=== PATIENT | male | born 1985 | race Caucasian/White ===

== ENCOUNTER 2018-04-14 21:11 | Inpatient (IN) | payer MEDICAID ==
[~2018-04-14] VITALS: Ht 175.3 cm; Wt 150.4 kg
[2018-04-14 21:18] VITALS: Ht 175.3 cm; Wt 150.4 kg
--- NOTE | 2018-04-14 22:12 | ERD ---
ER Documentation Chief Complaint Chief Complaint LLQ ab pain x 7days;hx diverticulitis on Cipro/Flagyl&Tylenol ES HPI The patient is a 32-year-old male, presenting to the ER because of intermittent left lower quadrant abdominal pain for the last 7 days, had similar symptoms 3 years ago when he had diverticulitis, the pain is intermittent, had intermittent subjective fever for the last 5 days. He was seen at [facility] 2 days ago and treated presumably for acute diverticulitis with Cipro and Flagyl; he is not getting better, complains of intermittent diarrhea for the last 7 days, denies vomiting, denies hematemesis last hematochezia. He smokes and drinks Past medical history: History of diverticulitis Past surgical history: Left ariel surgery when he was 13 years old ROS All systems reviewed and are negative except as per history of present illness. Medications Home Meds Reported Medications Acetaminophen* (Acetaminophen*) 500 MG Extra Strength Tablet, 500 MG PO Q4H PRN for PAIN AND OR ELEVATED TEMP, TAB 04/14/18 Metronidazole* (Flagyl*) 500 Mg Tablet, 500 MG PO BID, TAB 04/14/18 Ciprofloxacin Hcl* (Ciprofloxacin Hcl*) 500 Mg Tablet, 500 MG PO Q12, #14 TAB 04/14/18 Allergies Allergies: Coded Allergies: No Known Allergy (Unverified , 04/14/18) Physical Exam Vitals Vital Signs Date Temp Pulse Resp B/P (MAP) Pulse Ox O2 O2 Flow FiO2 Time Delivery Rate 04/14/18 98.4 98 15 151/93 97 Room Air 22:51 (112) 04/14/18 98.4 105 18 164/109 100 Room Air 21:56 (127) 04/14/18 100.0 111 18 229/128 100 21:18 (161) Physical Exam Const: No acute distress. Head: Atraumatic. Eyes: Normal Conjunctiva. ENT: Normal External Ears, Nose and Mouth. Neck: Full range of motion. No meningismus. Resp: Clear to auscultation bilaterally. Cardio: Regular rate and rhythm. Abd: Soft, non distended, normal bowel sounds, mild left lower quadrant tenderness, no rigidity, rebound or CVA tenderness Skin: No petechiae or rashes. Back: No midline or flank tenderness. Ext: No cyanosis, or edema. Neur: Awake and alert. No focal deficit Psych: Normal Mood and Affect. Result Diagram: 04/15/18 0437 04/15/18 0437 Results 24 hrs Laboratory Tests Test 04/14/18 21:52 White Blood Count 8.5 10^3/ul Red Blood Count 5.56 10^6/ul Hemoglobin 14.7 g/dl Hematocrit 44.9 % Mean Corpuscular Volume 80.8 fl Mean Corpuscular Hemoglobin 26.4 pg Mean Corpuscular Hemoglobin Concent 32.7 g/dl Red Cell Distribution Width 13.2 % Platelet Count 300 10^3/UL Mean Platelet Volume 9.7 fl Immature Granulocytes % 0.400 % Neutrophils % 56.0 % Lymphocytes % 30.3 % Monocytes % 11.6 % Eosinophils % 1.5 % Basophils % 0.2 % Nucleated Red Blood Cells % 0.0 /100WBC Immature Granulocytes # 0.030 10^3/ul Neutrophils # 4.8 10^3/ul Lymphocytes # 2.6 10^3/ul Monocytes # 1.0 10^3/ul Eosinophils # 0.1 10^3/ul Basophils # 0.0 10^3/ul Nucleated Red Blood Cells # 0.0 10^3/ul Urine Color YELLOW Urine Clarity CLEAR Urine pH 5.0 Urine Specific B[place] 1.015 Urine Ketones TRACE mg/dL Urine Nitrite NEGATIVE mg/dL Urine Bilirubin NEGATIVE mg/dL Urine Urobilinogen NEGATIVE mg/dL Urine Leukocyte Esterase TRACE Dennis/ul Urine Microscopic RBC 0 /HPF Urine Microscopic WBC 0 /HPF Urine Hemoglobin NEGATIVE mg/dL Urine Glucose NEGATIVE mg/dL Urine Total Protein NEGATIVE mg/dl Sodium Level 137 mmol/L Potassium Level 4.0 mmol/L Chloride Level 101 mmol/L Carbon Dioxide Level 25 mmol/L Anion Gap 11 Blood Urea Nitrogen 16 mg/dl Creatinine 0.85 mg/dl Est Glomerular Filtrat Rate mL/min > 60 mL/min Glucose Level 105 mg/dl Calcium Level 9.1 mg/dl Total Bilirubin 0.1 mg/dl Direct Bilirubin 0.00 mg/dl Indirect Bilirubin 0.1 mg/dl Aspartate Amino Transf (AST/SGOT) 46 IU/L Alanine Aminotransferase (ALT/SGPT) 79 IU/L Alkaline Phosphatase 74 IU/L Total Protein 8.5 g/dl Albumin 4.5 g/dl Globulin 4.00 g/dl Albumin/Globulin Ratio 1.12 Lipase 81 U/L [facility] [id number] [address] [place] [id number] Radiology Main Line: [phone] DIAGNOSTIC IMAGING REPORT Patient: JOE TORRES : 1985 Age: 32 Sex: M MR #: [id number] DOS: 04/14/18 2239 Ordering MD: JAVAN PRATT MD Location: E/R Room/Bed: PROCEDURE: CT Abdomen and Pelvis without contrast. CLINICAL INDICATION: Abdominal pain. TECHNIQUE: CT scan of the abdomen and pelvis without contrast was performed on a multidetector high-resolution CT scanner. The patient was scanned without intravenous contrast. Coronal and sagittal reformatted images were obtained from the axial source images. Images were reviewed on a high-resolution PACS workstation. The total exam CTDI equals 23.90 mGy and the total exam DLP equals 1668.37 mGy-cm. DICOM images are available. One or more of the following dose reduction techniques were utilized: 1.) Automated exposure control 2.) Adjustment of the mA +/- kV according to patient's size 3.) Use of iterative reconstruction technique. COMPARISON: None. FINDINGS: CT abdomen: Mild atelectasis at the posterior right costophrenic angle. Otherwise, the lung bases are clear. The heart size is normal, without pericardial thickening or effusion. The liver demonstrates mild decreased attenuation suggesting a mild degree of fatty infiltration. Otherwise, the liver is normal in size without focal mass or intrahepatic biliary dilatation. The spleen is normal in size and homogeneous in density. The stomach is partially collapsed, but is grossly unremarkable. The pancreas as visualized is normal. The gallbladder may contain small layering gallstones; and biliary tree otherwise unremarkable and there is no evidence for biliary dilatation. The adrenal glands are symmetric and normal. The kidneys are symmetrically unremarkable as well. No renal calculus or obstructive uropathy or mass lesion is seen. The aorta is of normal caliber. No abdominal aortic vascular calcifications are present. There is no retroperitoneal lymphadenopathy. The emilia hepatis region is clear. The bowel and mesentery, as visualized, are equally unremarkable. CT pelvis: Diverticulitis is seen in the proximal sigmoid colon. Pericolonic fat inflammatory changes are seen. There is no evident abscess or free air to suggest perforation. Small diverticula are otherwise identified within the proximal sigmoid colon. The small bowel loops situated within the pelvis are unremarkable. The pelvic organs are normal. The pelvic sidewalls and inguinal regions are clear. Rectum is unremarkable. No mass, lymphadenopathy, or free fluid is seen. No acute inflammation is seen. The appendix is unremarkable. 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 There is no evident hardware complication. No osteolytic or osteoblastic lesion is detected. IMPRESSION: 1. Diverticulitis of the proximal sigmoid colon. 2. Mild degree of fatty infiltration of the liver. 3. The appendix is unremarkable. 4. The gallbladder may contain small layering gallstones. RPTAT: [facility] Physician Bailey Date Time Electronically viewed and signed by Physician Bailey on 04/14/2018 23:21 RS/ CC: JAVAN PRATT MD [id number] MEDICAL MAKING DECISION: The patient is a 32-year-old male, presenting with acute diverticulitis, failed outpatient therapy. He was treated with Levaquin IV, Flagyl IV for acute diverticulitis with good response The differential diagnoses considered include but are not limited to cholelithiasis, cholecystitis, choledocholithiasis, cholangitis, pancreatitis, hepatitis, gastritis, peptic ulcer disease, gastric ulcer, appendicitis, cystitis, diverticulitis, partial small bowel obstruction. Departure Diagnosis: Primary Impression: Diverticulitis Additional Impression: Anemia Condition: Stable Comments I discussed the findings with the patient. I discussed the patient with the hospitalist Dr Logan 11:50 pm . who was made aware of the lab, the treatment, the patient condition. The patient is admitted to [facility] Disclaimer: Inadvertent spelling and grammatical errors are likely due to EHR/dictation software use and do not reflect on the overall quality of patient care. Also, please note that the electronic time recorded on this note does not necessarily reflect the actual time of the patient encounter. JAVAN PRATT MD Apr 14, 2018 22:12
[2018-04-14] MEDS ORDERED: ACET-141 PO (23:13)
[2018-04-14] MEDS ORDERED: CIPR500T4 PO (23:13)
[2018-04-14] MEDS ORDERED: METR500T PO (23:13)
[2018-04-15] MEDS ORDERED: ONDANSETRON 4 MG INJ IV PRN
[2018-04-15] MEDS ORDERED: NACL 0.9% 3 ML SYG IV SCH
[2018-04-15] MEDS ORDERED: morphine 2 MG INJ IV PRN
[2018-04-15] MEDS ORDERED: metroNIDAZOLE 500 MG/NS (PMX) 100 ML IVPB ONE
[2018-04-15] MEDS ORDERED: LEVOFLOXACIN 750MG/D5W (PMX) 150 ML IVPB ONE
[2018-04-15] MEDS: DEXTROSE 5%-0.45% NACL 1,000 ML IV SCH ×4 (00:47→22:00)
[2018-04-15 02:44] VITALS: BP 138/81; PULSE 94; RESP 20
[2018-04-15] MEDS ORDERED: metroNIDAZOLE 500 MG/NS (PMX) 100 ML IVPB SCH ×2 (08:00)
[2018-04-15 08:11] VITALS: BP 137/80; PULSE 80; RESP 20
--- NOTE | 2018-04-15 08:43 | HP ---
Date/Time of Note Date/Time of Note DATE: 04/15/18 TIME: 08:41 Assessment/Plan VTE Prophylaxis Risk score (from [facility])>0 risk: 1 SCD applied (from [facility]): Yes Pharmacological prophylaxis: heparin Lines/Catheters IV Catheter Type (from [facility]): Peripheral IV Assessment/Plan Assessment/Plan 1. Sigmoid diverticulitis -Keep n.p.o. with IV fluid -Cipro and Flagyl -Stool culture including C. difficile 2. Morbid obesity: Weight reduction advised Result Diagram: 04/15/1843604/15/18436 Results 24hrs Laboratory Tests Test 04/14/18 21:52 04/15/18 04:37 White Blood Count 8.5 6.9 Red Blood Count 5.56 5.04 Hemoglobin 14.7 13.5 L Hematocrit 44.9 41.4 L Mean Corpuscular Volume 80.8 L 82.1 Mean Corpuscular Hemoglobin 26.4 L 26.8 L Mean Corpuscular Hemoglobin Concent 32.7 32.6 Red Cell Distribution Width 13.2 13.6 Platelet Count 300 262 Mean Platelet Volume 9.7 10.0 Immature Granulocytes % 0.400 0.300 Neutrophils % 56.0 45.4 Lymphocytes % 30.3 37.0 Monocytes % 11.6 H 15.5 H Eosinophils % 1.5 1.5 Basophils % 0.2 0.3 Nucleated Red Blood Cells % 0.0 0.0 Immature Granulocytes # 0.030 0.020 Neutrophils # 4.8 3.1 Lymphocytes # 2.6 2.6 Monocytes # 1.0 H 1.1 H Eosinophils # 0.1 0.1 Basophils # 0.0 0.0 Nucleated Red Blood Cells # 0.0 0.0 Urine Color YELLOW Urine Clarity CLEAR Urine pH 5.0 Urine Specific Prole 1.015 Urine Ketones TRACE A Urine Nitrite NEGATIVE Urine Bilirubin NEGATIVE Urine Urobilinogen NEGATIVE Urine Leukocyte Esterase TRACE A Urine Microscopic RBC 0 Urine Microscopic WBC 0 Urine Hemoglobin NEGATIVE Urine Glucose NEGATIVE Urine Total Protein NEGATIVE Sodium Level 137 138 Potassium Level 4.0 4.4 Chloride Level 101 100 Carbon Dioxide Level 25 30 Anion Gap 11 8 Blood Urea Nitrogen 16 14 Creatinine 0.85 0.93 Est Glomerular Filtrat Rate mL/min > 60 > 60 Glucose Level 105 106 Calcium Level 9.1 8.8 Total Bilirubin 0.1 L 0.2 Direct Bilirubin 0.00 0.00 Indirect Bilirubin 0.1 0.2 Aspartate Amino Transf (AST/SGOT) 46 40 Alanine Aminotransferase (ALT/SGPT) 79 H 72 H Alkaline Phosphatase 74 55 Total Protein 8.5 H 7.6 Albumin 4.5 3.9 Globulin 4.00 H 3.70 H Albumin/Globulin Ratio 1.12 1.05 Lipase 81 Phosphorus Level 4.6 Magnesium Level 2.2 HPI/ROS Admit Date/Time Admit Date/Time Apr 14, 2018 at 23:52 Hx of Present Illness This is a 32-year-old morbidly obese male with a history of diverticulitis 3 years ago who presents the ER complaining of abdominal pain and loose stools. He said symptoms started a few days ago. He was diagnosed with diverticulitis for which she was started on Cipro and Flagyl. He said he took it for the past 2 days, but symptom worsened yesterday and as such he decided to come to the ER for evaluation. Last time he was diagnosed with diverticulitis was 3 years ago. When he presented to ER, CT showed proximal sigmoid diverticulitis PMH/Family/Social Past Medical History Medical History: other (See HPI) Medications Current Medications Dextrose/Sodium Chloride 1,000 ml @ 125 mls/hr Q8H IV Last administered on 04/15/18at 00:47; Admin Dose 125 MLS/HR; Start 04/14/18 at 23:54 IV Flush (NS 3 ml) 3 ml PER PROTOCOL IV ; Start 04/15/18 at 00:00 Ondansetron HCl (Zofran Inj) 4 mg Q6H PRN IV NAUSEA AND/OR VOMITING; Start 04/15/18 at 00:00 Morphine Sulfate (morphine) 2 mg Q4H PRN IV SEVERE PAIN LEVEL 7-10; Start 04/15/18 at 00:00 Ciprofloxacin/ Dextrose 200 ml @ 200 mls/hr Q12 IVPB ; Start 04/15/18 at 21:00 Metronidazole 100 ml @ 100 mls/hr Q8H IVPB Last administered on 04/15/18at 08:32; Admin Dose 100 MLS/HR; Start 04/15/18 at 08:00 Coded Allergies: No Known Allergy (Unverified , 04/14/18) Past Surgical History Past Surgical Hx: other (See HPI) Family History Significant Family History: no pertinent family hx Social History Alcohol Use: none Smoking Status: Current some day smoker Drug Use: none Exam/Review of Systems Vital Signs Vitals Vital Signs Date Temp Pulse Resp B/P (MAP) Pulse Ox O2 O2 Flow FiO2 Time Delivery Rate 04/15/18 98.0 80 20 137/80 94 Room Air 08:11 (99) Intake and Output 04/14/18 04/14/18 04/15/18 1515:00 23:00 07:00 IntakeIntake Total 650 ml BalanceBalance 650 ml Exam Constitutional: alert, oriented, well developed Head: normocephalic, atraumatic Eyes: EOMI, PERRL Respiratory: clear to auscultation, normal air movement Cardiovascular: regular rate and rhythm Gastrointestinal: soft, other (Obese) Extremities: normal pulses BEN KUMARI MD Apr 15, 2018 08:43
[2018-04-15] MEDS: PIPER-TAZO 3.375 GM IV (PMX) 100 ML IVPB SCH ×2 (11:50→18:09)
[2018-04-15] MEDS: ENOXAPARIN 40 MG/0.4 ML SYG SC SCH (11:54)
[2018-04-15] MEDS ORDERED: ACETAMINOPHEN 1000MG/100ML IV 100 ML IVPB PRN (12:00)
[2018-04-15] MEDS ORDERED: morphine 4 MG/ML VIAL IV PRN (12:00)
--- NOTE | 2018-04-15 12:41 | CONS ---
DATE OF ADMISSION: 04/14/2018 DATE OF CONSULTATION: 04/15/2018 TYPE OF CONSULTATION: Infectious disease. REASON FOR CONSULTATION: Antibiotic management. HISTORY OF PRESENT ILLNESS: Andrew Felix is a 32-year-old male who comes in with left lower quadrant abdominal pain for 7 days with a history of diverticulitis on Cipro and Flagyl an d Tylenol. The patient presented to the emergency room with intermittent left lower quadrant abdomin al pain for the past 7 days. He has had similar symptoms 3 years ago when he had diverticulitis. Th e pain is intermittent and he has had subjective fevers for the last 5 days. He was seen at [facility] 2 days prior to admission, treated for acute diverticulitis with Cipro and Flagyl, but is not getting better. He complains of intermittent diarrhea for the last 7 days. He denies [place]ag[place] sea, vomiting, hematemesis. PAST SURGICAL HISTORY: Left hip surgery when he is 13 years old. PAST MEDICAL HISTORY: Diverticulitis. HOSPITAL COURSE: On admission, his temperature was 100. White count was 6.9, H and H of 13.5 and 41 .4, platelet count 262,000. BUN and creatinine was 14/0.93. A CT scan of the abdomen and pelvis was done that showed diverticulitis in the proximal sigmoid colon, mild degree of fatty infiltration of the liver. The appendix is unremarkable. The gallbladder may contain small layering gallstones. Wh ite count today is 6.9. Urine shows trace leukocyte esterase, but no white cells per high powered fi eld. Abdominal ultrasound: Fatty infiltration of the liver, limited study due to patient's body hab itus. The patient is n.p.o. He is on Cipro and Flagyl and switched over to Zosyn to which I concur. PHYSICAL EXAMINATION: GENERAL: He is well developed, well-nourished male who is awake, responsive, in no acute distress. VITAL SIGNS: Stable. T-max is 100. SKIN: Without generalized rash. HEENT: Within normal limits. NECK: Supple. LYMPH NODES: None palpable. CHEST: Decreased breath sounds at the bases. HEART: Without murmur or gallop. ABDOMEN: Soft, nontender, nondistended without organosplenomegaly or masses. He has mild left lower quadrant tenderness without any rigidity, rebound. No CVA tenderness. EXTREMITIES: Without cyanosis, clubbing or edema. RECTAL AND GENITAL: Deferred. NEUROLOGIC: No focal neurological abnormality. IMPRESSION AND PLAN: The patient is a 32-year-old male with significant diverticulitis, currently on Zosyn. I would recommend surgical evaluation to see if the diverticulitis is something that would b e amenable to surgery. The patient, however, has morbid obesity. Weight reduction is advised. A [facility] culture was ordered for Clostridium difficile. I will dictate my findings to the hospitalist. Dictated By: DAVY TOTH MD CHRISTIANO/NTS Conf#: [id number] DID#: [id number] CC: NASIR NUNN MD; BEN KUMARI MD;*[facility]*
--- NOTE | 2018-04-15 13:54 | PN ---
Date/Time of Note Date/Time of Note DATE: 04/15/18 TIME: 13:54 Objective Vitals Vital Signs Date Temp Pulse Resp B/P (MAP) Pulse Ox O2 O2 Flow FiO2 Time Delivery Rate 04/15/18 98.0 80 20 137/80 94 Room Air 08:11 (99) Intake and Output 04/14/18 04/14/18 04/15/18 1515:00 23:00 07:00 IntakeIntake Total 650 ml BalanceBalance 650 ml Results Result Diagram: 04/15/18 0437 04/15/18 0437 Medications Medications Current Medications Dextrose/Sodium Chloride 1,000 ml @ 125 mls/hr Q8H IV Last administered on 04/15/18at 12:15; Admin Dose 125 MLS/HR; Start 04/14/18 at 23:54 IV Flush (NS 3 ml) 3 ml PER PROTOCOL IV ; Start 04/15/18 at 00:00 Ondansetron HCl (Zofran Inj) 4 mg Q6H PRN IV NAUSEA AND/OR VOMITING; Start 04/15/18 at 00:00 Enoxaparin Sodium (Lovenox) 40 mg DAILY SC Last administered on 04/15/18at 11:54; Admin Dose 40 MG; Start 04/15/18 at 09:00 Piperacillin Sod/ Tazobactam Sod 100 ml @ 200 mls/hr Q6 IVPB Last administered on 04/15/18at 11:50; Admin Dose 200 MLS/HR; Start 04/15/18 at 12:00 Morphine Sulfate (morphine) 2 mg Q4H PRN IV SEVERE PAIN LEVEL 7-10; Start 04/15/18 at 12:00 Acetaminophen 100 ml @ 400 mls/hr Q6H PRN IVPB pain or fever above 100.5F Last administered on 04/15/18at 12:15; Admin Dose 400 MLS/HR; Start 04/15/18 at 12:00; Stop 04/16/18 at 11:59 VTE Prophylaxis Risk score (from Nsg)>0 risk: 1 SCD applied (from Nsg): Yes Lines/Catheters IV Catheter Type: Zavala in Place: No Assessment/Plan Hospital Course This short progress note as H&P was done earlier today. Continue broad-spectrum IV antibiotics, patient having minimal symptoms, very mild left lower quadrant pain. We will keep n.p.o. for now, may consider clears tomorrow if stable. NASIR NUNN Apr 15, 2018 13:54
[2018-04-15 20:07] VITALS: BP 156/82; PULSE 78; RESP 20
[2018-04-15] MEDS ORDERED: CIPROFLOXACIN 400MG/D5W 200 ML IVPB SCH (21:00)
[2018-04-16] MEDS: PIPER-TAZO 3.375 GM IV (PMX) 100 ML IVPB SCH ×5 (00:36→23:48)
[2018-04-16 02:30] VITALS: BP 148/78; PULSE 77; RESP 18
[2018-04-16] MEDS: DEXTROSE 5%-0.45% NACL 1,000 ML IV SCH ×3 (07:48→23:54)
[2018-04-16 07:58] VITALS: BP 148/90; PULSE 80; RESP 18
[2018-04-16] MEDS: ENOXAPARIN 40 MG/0.4 ML SYG SC SCH (09:06)
--- NOTE | 2018-04-16 10:16 | CONS ---
Date/Time of Note Date/Time of Note DATE: 04/16/18 TIME: 10:15 Assessment/Plan Assessment/Plan Hospital Course ID PROGRESS NOTE CURRENT ABX: DAY # 2=> ZOSYN s/p Levaquin, Flagyl, Cipro 04/16/18 0450 04/16/18 0450 24H INTERVAL SUMMARY * Clinically improved -- OOB-> Chair, denies pain except for pain w/defecation. NO fevers, VSS * 04/15/18 ABD US: FINDINGS: * The liver demonstrates increased echogenicity. The liver is normal in size and no focal solid lesions are seen. The liver measures 16.7 cm in length. The portal vein is patent with normal direction of flow. No intrahepatic biliary dilatation is seen. * No gallstones are identified within the gallbladder. There is no pericholecystic fluid or gallbladder wall thickening. The common bile duct measures 5 mm in maximal dimension. * The visualized portions of the pancreas are unremarkable. The tail of the pancreas is not seen. * No free fluid is identified. * The right kidney is normal in size, and demonstrate normal echogenicity and cortical thickness. The right kidney measures 11.5 cm in long dimension. There is no evidence of hydronephrosis. There are no kidney stones. * IMPRESSION: Fatty infiltration of the liver. Limited study due to the patient's body habitus * 04/14/18 CT ABD-PEL IMPRESSION: * 1. Diverticulitis of the proximal sigmoid colon. * 2. Mild degree of fatty infiltration of the liver. * 3. The appendix is unremarkable. * 4. The gallbladder may contain small layering gallstones. MICRO * ? Pending? PHYSICAL EXAMINATION: GENERAL: Afebrile, VSS, morbid obese, NAD HEENT: AT, NC, anicteric NECK: Supple, trach midline CHEST: Equal chest rise bilaterally, without dyspnea on observation HEART: Pulse RRR ABDOMEN: Obese, soft EXTREMITIES: Warm, dry SKIN: No rash, no diaphoresis ID ASSESSMENT 32 yo MORBID OBESE M admit with: 1. SIRS on admission w/Tmax 100.0, tachycardia (HR 111) due to #2 2. Acute sigmoid diverticulitis 3. HTN urgency on admission -- resolved 4. Mild Fatty Liver Infiltration w/elevated ALT, normal AST 5. Social ETOH 6. Hx of left hip surgery ( )MRSA Nares ABX ALLERGIES: NKDA INVASIVES: PI CURRENT ABX: DAY# 2=> ZOSYN s/p Levaquin, Flagyl, Cipro ID RECOMMENDATIONS/PLAN: Continue current ABX -- DC PLANNING: -- Per Dr. Giron may DC home on either ABX below per cost/insurance formulary * A) High dose Levaquin 750mg po daily x 5 days (Levaquin has aerobic coverage) * B) High dose Cipro 750mg PO Q12 + Flagyl 500mg PO Q8H x 5 days . Result Diagram: 04/16/18 0450 04/16/180 Results 24hrs Laboratory Tests Test 04/16/18 04:50 White Blood Count 6.3 Red Blood Count 5.10 Hemoglobin 13.6 L Hematocrit 42.9 Mean Corpuscular Volume 84.1 Mean Corpuscular Hemoglobin 26.7 L Mean Corpuscular Hemoglobin Concent 31.7 L Red Cell Distribution Width 13.4 Platelet Count 253 Mean Platelet Volume 10.0 Immature Granulocytes % 0.200 Neutrophils % 45.9 Lymphocytes % 38.1 Monocytes % 13.1 H Eosinophils % 2.2 Basophils % 0.5 Nucleated Red Blood Cells % 0.0 Immature Granulocytes # 0.010 Neutrophils # 2.9 Lymphocytes # 2.4 Monocytes # 0.8 Eosinophils # 0.1 Basophils # 0.0 Nucleated Red Blood Cells # 0.0 Sodium Level 138 Potassium Level 4.5 Chloride Level 104 Carbon Dioxide Level 25 Anion Gap 9 Blood Urea Nitrogen 7 Creatinine 0.92 Est Glomerular Filtrat Rate mL/min > 60 Glucose Level 118 Calcium Level 9.1 Magnesium Level 2.1 Total Bilirubin 0.3 Direct Bilirubin 0.00 Indirect Bilirubin 0.3 Aspartate Amino Transf (AST/SGOT) 44 Alanine Aminotransferase (ALT/SGPT) 73 H Alkaline Phosphatase 50 Total Protein 7.2 Albumin 3.9 Globulin 3.30 H Albumin/Globulin Ratio 1.18 Consultation Date/Type/Reason Admit Date/Time Apr 14, 2018 at 23:52 Initial Consult Date Exam/Review of Systems Vital Signs Vitals Vital Signs Date Temp Pulse Resp B/P (MAP) Pulse Ox O2 O2 Flow FiO2 Time Delivery Rate 04/16/18 98.1 80 18 148/90 99 Room Air 07:58 (109) Intake and Output 04/15/18 04/15/18 04/16/18 1515:00 23:00 07:00 IntakeIntake Total 900 ml 1100 ml 1650 ml OutputOutput Total 500 ml BalanceBalance 400 ml 1100 ml 1650 ml Medications Medications Current Medications Dextrose/Sodium Chloride 1,000 ml @ 125 mls/hr Q8H IV Last administered on 04/16/18at 07:48; Admin Dose 125 MLS/HR; Start 04/14/18 at 23:54 IV Flush (NS 3 ml) 3 ml PER PROTOCOL IV ; Start 04/15/18 at 00:00 Ondansetron HCl (Zofran Inj) 4 mg Q6H PRN IV NAUSEA AND/OR VOMITING; Start 04/15/18 at 00:00 Enoxaparin Sodium (Lovenox) 40 mg DAILY SC Last administered on 04/16/18at 09:06; Admin Dose 40 MG; Start 04/15/18 at 09:00 Piperacillin Sod/ Tazobactam Sod 100 ml @ 200 mls/hr Q6 IVPB Last administered on 04/16/18at 06:26; Admin Dose 200 MLS/HR; Start 04/15/18 at 12:00 Morphine Sulfate (morphine) 2 mg Q4H PRN IV SEVERE PAIN LEVEL 7-10; Start 04/15/18 at 12:00 Acetaminophen 100 ml @ 400 mls/hr Q6H PRN IVPB pain or fever above 100.5F Last administered on 04/15/18at 12:15; Admin Dose 400 MLS/HR; Start 04/15/18 at 12:00; Stop 04/16/18 at 11:59 EAN DAY NP Apr 16, 2018 10:16
--- NOTE | 2018-04-16 11:44 | PN ---
Date/Time of Note Date/Time of Note DATE: 04/16/18 TIME: 11:42 Objective Vitals Vital Signs Date Temp Pulse Resp B/P (MAP) Pulse Ox O2 O2 Flow FiO2 Time Delivery Rate 04/16/18 98.1 80 18 148/90 99 Room Air 07:58 (109) Intake and Output 04/15/18 04/15/18 04/16/18 1515:00 23:00 07:00 IntakeIntake Total 900 ml 1100 ml 1650 ml OutputOutput Total 500 ml BalanceBalance 400 ml 1100 ml 1650 ml Results Result Diagram: 04/16/18 0450 04/16/18 045 Medications Medications Current Medications Dextrose/Sodium Chloride 1,000 ml @ 125 mls/hr Q8H IV Last administered on 04/16/18at 07:48; Admin Dose 125 MLS/HR; Start 04/14/18 at 23:54 IV Flush (NS 3 ml) 3 ml PER PROTOCOL IV ; Start 04/15/18 at 00:00 Ondansetron HCl (Zofran Inj) 4 mg Q6H PRN IV NAUSEA AND/OR VOMITING; Start 04/15/18 at 00:00 Enoxaparin Sodium (Lovenox) 40 mg DAILY SC Last administered on 04/16/18at 09:06; Admin Dose 40 MG; Start 04/15/18 at 09:00 Piperacillin Sod/ Tazobactam Sod 100 ml @ 200 mls/hr Q6 IVPB Last administered on 04/16/18at 06:26; Admin Dose 200 MLS/HR; Start 04/15/18 at 12:00 Morphine Sulfate (morphine) 2 mg Q4H PRN IV SEVERE PAIN LEVEL 7-10; Start 04/15/18 at 12:00 Acetaminophen 100 ml @ 400 mls/hr Q6H PRN IVPB pain or fever above 100.5F Last administered on 04/15/18at 12:15; Admin Dose 400 MLS/HR; Start 04/15/18 at 12:00; Stop 04/16/18 at 11:59 VTE Prophylaxis Risk score (from Ns)>0 risk: 1 SCD applied (from Ns): No SCD contraindication: other Lines/Catheters IV Catheter Type: Zavala in Place: No Assessment/Plan Hospital Course Subjective Patient doing well, still has minimal pain and the right lower quadrant Objective Physical exam General: Patient is laying in bed and answers questions appropriately Mentation: Patient is alert and oriented 4, Head: Normocephalic atraumatic Eyes: EOMI, pupils reactive to light Neck: Supple, nontender, midline Respiratory: Clear to auscultation bilaterally Cardiovascular: regular rate, no obvious murmurs Gastrointestinal: Mildly tender in the right lower quadrant to palpation, bowel sounds heard. Neurological: Moves all extremities spontaneously Skin: No new skin lesions Assessment and plan Diverticulitis -Patient did not truly failed outpatient therapy with Cipro Flagyl, after speaking with patient in depth it appears patient was not counseled appropriately at the other facility and subsequently went home and ate very fibrous foods including salads as well as steak which would easily exacerbate diverticulitis. -Doing well on broad-spectrum IV antibiotics -ID involved -Transition over to oral medications when ID okay -This is patient's second occurrence of diverticulitis in the past few years, patient has not had colonoscopy, recommend patient follow-up with a GI physician and get a colonoscopy within a few months. Will defer to infectious disease for further recommendations Obesity -Dietary restriction discussed Disposition -Continue antibiotics for diverticulitis, anticipate DC with orals soon. Patient doing well on clears. NASIR NUNN Apr 16, 2018 11:44
[2018-04-16 16:01] VITALS: BP 144/96; PULSE 80; RESP 18
[2018-04-16 21:30] VITALS: BP 142/88; PULSE 82; RESP 20
[2018-04-17] MEDS: DEXTROSE 5%-0.45% NACL 1,000 ML IV SCH (01:21)
[2018-04-17 03:16] VITALS: BP 140/86; PULSE 80; RESP 18
[2018-04-17] MEDS: PIPER-TAZO 3.375 GM IV (PMX) 100 ML IVPB SCH ×2 (05:23→11:55)
[2018-04-17 08:32] VITALS: BP 135/83; PULSE 81; RESP 16
[2018-04-17] MEDS: ENOXAPARIN 40 MG/0.4 ML SYG SC SCH (10:05)
--- NOTE | 2018-04-17 11:50 | CONS ---
Date/Time of Note Date/Time of Note DATE: 04/17/18 TIME: 11:37 Assessment/Plan Assessment/Plan Hospital Course ID PROGRESS NOTE CURRENT ABX: DAY # 3=> ZOSYN s/p Levaquin, Flagyl, Cipro 04/17/1843804/17/18 043 24H INTERVAL SUMMARY * Feeling well -- no fevers, ambulatory in room * 04/15/18 ABD US: FINDINGS: * The liver demonstrates increased echogenicity. The liver is normal in size and no focal solid lesions are seen. The liver measures 16.7 cm in length. The portal vein is patent with normal direction of flow. No intrahepatic biliary dilatation is seen. * No gallstones are identified within the gallbladder. There is no pericholecystic fluid or gallbladder wall thickening. The common bile duct measures 5 mm in maximal dimension. * The visualized portions of the pancreas are unremarkable. The tail of the pancreas is not seen. * No free fluid is identified. * The right kidney is normal in size, and demonstrate normal echogenicity and cortical thickness. The right kidney measures 11.5 cm in long dimension. There is no evidence of hydronephrosis. There are no kidney stones. * IMPRESSION: Fatty infiltration of the liver. Limited study due to the patient's body habitus * 04/14/18 CT ABD-PEL IMPRESSION: * 1. Diverticulitis of the proximal sigmoid colon. * 2. Mild degree of fatty infiltration of the liver. * 3. The appendix is unremarkable. * 4. The gallbladder may contain small layering gallstones. MICRO * 04/15/18 STOOL (-) C.DIFF * 04/15/18 STOOL CX: FECES CULTURE Preliminary Organism 1 COLIFORM QUANTITY NO * PHYSICAL EXAMINATION: GENERAL: Afebrile, VSS, morbid obese, NAD HEENT: AT, NC, anicteric NECK: Supple, trach midline CHEST: Equal chest rise bilaterally, without dyspnea on observation HEART: Pulse RRR ABDOMEN: Obese, soft EXTREMITIES: Warm, dry SKIN: No rash, no diaphoresis ID ASSESSMENT 32 yo MORBID OBESE M admit with: 1. SIRS on admission w/Tmax 100.0, tachycardia (HR 111) due to #2 2. Acute sigmoid diverticulitis 3. HTN urgency on admission -- resolved 4. Mild Fatty Liver Infiltration w/elevated ALT, normal AST 5. Social ETOH 6. Hx of left hip surgery ( )MRSA Nares ABX ALLERGIES: NKDA INVASIVES: PI CURRENT ABX: DAY# 3=> ZOSYN s/p Levaquin, Flagyl, Cipro ID RECOMMENDATIONS/PLAN: Continue current ABX -- DC PLANNING: -- Per Dr. Giron may DC home on either ABX below per cost/insurance formulary * A) High dose Levaquin 750mg po daily x 5 days (Levaquin has aerobic coverage) * B) High dose Cipro 750mg PO Q12 + Flagyl 500mg PO Q8H x 5 days . Result Diagram: 04/17/1843804/17/18438 Results 24hrs Laboratory Tests Test 04/17/18 04:39 White Blood Count 5.6 Red Blood Count 4.87 Hemoglobin 12.9 L Hematocrit 40.1 L Mean Corpuscular Volume 82.3 Mean Corpuscular Hemoglobin 26.5 L Mean Corpuscular Hemoglobin Concent 32.2 Red Cell Distribution Width 13.3 Platelet Count 251 Mean Platelet Volume 10.0 Immature Granulocytes % 0.200 Neutrophils % 32.7 L Lymphocytes % 53.3 H Monocytes % 10.4 Eosinophils % 3.2 Basophils % 0.2 Nucleated Red Blood Cells % 0.0 Immature Granulocytes # 0.010 Neutrophils # 1.8 Lymphocytes # 3.0 H Monocytes # 0.6 Eosinophils # 0.2 Basophils # 0.0 Nucleated Red Blood Cells # 0.0 Sodium Level 139 Potassium Level 3.9 Chloride Level 105 Carbon Dioxide Level 26 Anion Gap 8 Blood Urea Nitrogen 5 L Creatinine 0.73 Est Glomerular Filtrat Rate mL/min > 60 Glucose Level 110 Calcium Level 8.7 Phosphorus Level 4.0 Magnesium Level 2.0 Consultation Date/Type/Reason Admit Date/Time Apr 14, 2018 at 23:52 Initial Consult Date Exam/Review of Systems Vital Signs Vitals Vital Signs Date Temp Pulse Resp B/P (MAP) Pulse Ox O2 O2 Flow FiO2 Time Delivery Rate 04/17/18 97.7 81 16 135/83 96 Room Air 08:32 (100) Intake and Output 04/16/18 04/16/18 04/17/18 1515:00 23:00 07:00 IntakeIntake Total 950 ml 1740 ml 1940 ml BalanceBalance 950 ml 1740 ml 1940 ml Medications Medications Current Medications Dextrose/Sodium Chloride 1,000 ml @ 125 mls/hr Q8H IV Last administered on 04/17/18at 01:21; Admin Dose 125 MLS/HR; Start 04/14/18 at 23:54 IV Flush (NS 3 ml) 3 ml PER PROTOCOL IV ; Start 04/15/18 at 00:00 Ondansetron HCl (Zofran Inj) 4 mg Q6H PRN IV NAUSEA AND/OR VOMITING; Start 04/15/18 at 00:00 Enoxaparin Sodium (Lovenox) 40 mg DAILY SC Last administered on 04/17/18at 10:05; Admin Dose 40 MG; Start 04/15/18 at 09:00 Piperacillin Sod/ Tazobactam Sod 100 ml @ 200 mls/hr Q6 IVPB Last administered on 04/17/18at 05:23; Admin Dose 200 MLS/HR; Start 04/15/18 at 12:00 Morphine Sulfate (morphine) 2 mg Q4H PRN IV SEVERE PAIN LEVEL 7-10; Start 04/15/18 at 12:00 EAN DAY NP Apr 17, 2018 11:50
[2018-04-17] MEDS ORDERED: LEVO750T25 PO (12:35)
--- NOTE | 2018-04-17 14:47 | DS ---
Date/Time of Note Date/Time of Note DATE: 04/17/18 TIME: 14:47 Discharge Summary Admission/Discharge Info Admit Date/Time Apr 14, 2018 at 23:52 Discharge Date/Time Discharge Diagnosis Diverticulitis Patient Condition: Stable Hospital Course Maryanne presented with abdominal pain and diarrhea. CT scan showed sigmoid diverticulitis. He was treated with IV abx and improved. Prescribed a course of levaquin to complete as an outpatient Home Meds Reported Medications Acetaminophen* (Acetaminophen*) 500 MG Extra Strength Tablet, 500 MG PO Q4H PRN for PAIN AND OR ELEVATED TEMP, TAB 04/14/18 Metronidazole* (Flagyl*) 500 Mg Tablet, 500 MG PO BID, TAB 04/14/18 Ciprofloxacin Hcl* (Ciprofloxacin Hcl*) 500 Mg Tablet, 500 MG PO Q12, #14 TAB 04/14/18 Primary Care Provider Not On Staff Doctor Pending Labs Laboratory Tests Test 04/17/18 04:39 White Blood Count 5.6 10^3/ul (4.8-10.8) Red Blood Count 4.87 10^6/ul (4.70-6.10) Hemoglobin 12.9 g/dl (14.0-18.0) Hematocrit 40.1 % (42.0-52.0) Mean Corpuscular Volume 82.3 fl (82.0-101.0) Mean Corpuscular Hemoglobin 26.5 pg (29.0-33.0) Mean Corpuscular Hemoglobin Concent 32.2 g/dl (32.0-37.0) Red Cell Distribution Width 13.3 % (11.5-14.5) Platelet Count 251 10^3/UL (140-415) Mean Platelet Volume 10.0 fl (7.4-10.4) Immature Granulocytes % 0.200 % (0.001-0.429) Neutrophils % 32.7 % (39.0-77.0) Lymphocytes % 53.3 % (15.0-51.0) Monocytes % 10.4 % (0.0-11.0) Eosinophils % 3.2 % (0.0-7.0) Basophils % 0.2 % (0.0-2.0) Nucleated Red Blood Cells % 0.0 /100WBC (0.0-0.0) Immature Granulocytes # 0.010 10^3/ul (0.0-0.031) Neutrophils # 1.8 10^3/ul (1.6-7.5) Lymphocytes # 3.0 10^3/ul (0.8-2.9) Monocytes # 0.6 10^3/ul (0.3-0.9) Eosinophils # 0.2 10^3/ul (0.0-0.5) Basophils # 0.0 10^3/ul (0.0-0.1) Nucleated Red Blood Cells # 0.0 10^3/ul (0.0-0.0) Sodium Level 139 mmol/L (135-144) Potassium Level 3.9 mmol/L (3.5-5.1) Chloride Level 105 mmol/L (97-110) Carbon Dioxide Level 26 mmol/L (21-31) Anion Gap 8 (5-13) Blood Urea Nitrogen 5 mg/dl (7-20) Creatinine 0.73 mg/dl (0.61-1.24) Est Glomerular Filtrat Rate mL/min > 60 mL/min (>60) Glucose Level 110 mg/dl (70-220) Calcium Level 8.7 mg/dl (8.4-10.2) Phosphorus Level 4.0 mg/dl (2.5-4.9) Magnesium Level 2.0 mg/dl (1.7-2.5) BRYANT SILVEIRA MD Apr 17, 2018 14:47
== END 2018-04-17 16:04 | disposition home or self-care (01) | DRG 392 ==
LOC: E/R 21:11 → MS1 23:52
PROVIDERS: ADMIT Internal Medicine; ATTEND Internal Medicine
DX: K57.92 Diverticulitis of intestine, part unspecified, without perforation or abscess without bleeding (principal); Z68.42 Body mass index [BMI] 45.0-49.9, adult; D64.9 Anemia, unspecified; I10 Essential (primary) hypertension; E66.01 Morbid (severe) obesity due to excess calories
CPT/HCPCS: 36415; 74176; 76705; 80048; 80053; 81001; 83690; 83735; 84100; 85025; 87045; 87075; J0131; J1650; J1956; J2543; J7042